=== PATIENT | female | born 1985 | race American Indian/Alaskan Native ===

== ENCOUNTER 2018-09-03 15:43 | Emergency (ER) | payer MEDICAID ==
[2018-09-03] MEDS ORDERED: GLUCAGEN IM ONE (16:28)
[2018-09-03] MEDS ORDERED: D50W (25GM) Syringe IV ONE ×2 (16:28)
--- NOTE | 2018-09-03 17:03 | Emergency Department Report ---
ED General Adult HPI - General Chief complaint: Hypoglycemia Stated complaint: LOW BLOOD SUGAR Time Seen by Provider: 09/03/18 16:27 Source: EMS Mode of arrival: Stretcher Limitations: No Limitations - History of Present Illness Initial comments: Patient presents to the emergency department with a chief complaint of low blood glucose levels. The patient is 13 weeks and this is her eighth . The patient is taking insulin for her diabetes and took 22 units of regular insulin and for 4 units of long-acting insulin this morning and only a small breakfast. The patient states that she intended to eat lunch but she did not get a chance to. Upon EMS arrival her blood glucose level was 29. The patient received an amp of D50 and food by EMS. She denies any chest pain, shortness of breath, abdominal pain, vaginal discharge, or vaginal bleeding. -: Sudden Severity scale (0 -10): 0 Consistency: now resolved Improves with: none Worsens with: none Associated Symptoms: denies other symptoms Treatments Prior to Arrival: none - Related Data Previous Rx's Medication Instructions Recorded Last Taken Type HYDROcodone/APAP 5-325 [Basom 1 each PO Q6HR PRN #12 tablet 11/05/13 Unknown Rx 5/325 mg] Metoclopramide HCl [Reglan] 10 mg PO Q6H PRN #12 tablet 11/05/13 Unknown Rx Guaifenesin/Codeine Phosphate 5 ml PO BID #10 dose 08/09/14 Unknown Rx [Guaifen-Codeine 100-10 mg/5 ml] Penicillin Vk [Veetids TAB] 500 mg PO BID #20 tablet 08/09/14 Unknown Rx Prednisone [Prednisone 5 mg (6-Day 5 mg PO .TAPER #1 tab.ds.pk 08/09/14 Unknown Rx Pack, 21 Tabs)] Cetirizine HCl [ZyrTEC] 10 mg PO DAILY #30 capsule 07/20/16 Unknown Rx Fluticasone [Flonase] 1 spray NS QDAY #1 bottle 07/20/16 Unknown Rx Ibuprofen [Motrin 800 MG tab] 800 mg PO Q8HR PRN #30 tablet 07/20/16 Unknown Rx Allergies Allergy/AdvReac Type Severity Reaction Status Date / Time No Known Allergies Allergy Verified 09/03/18 16:28 ED Review of Systems ROS: Stated complaint: LOW BLOOD SUGAR Other details as noted in HPI Comment: All other systems reviewed and negative Constitutional: denies: chills, fever Eyes: denies: eye pain, eye discharge, vision change ENT: denies: ear pain, throat pain Respiratory: denies: cough, shortness of breath, wheezing Cardiovascular: denies: chest pain, palpitations Endocrine: no symptoms reported Gastrointestinal: denies: abdominal pain, nausea, diarrhea Genitourinary: denies: urgency, dysuria, discharge Musculoskeletal: denies: back pain, joint swelling, arthralgia Skin: denies: rash, lesions Neurological: denies: headache, weakness, paresthesias Psychiatric: denies: anxiety, depression Hematological/Lymphatic: denies: easy bleeding, easy bruising ED Past Medical Hx - Past Medical History Previous Medical History?: Yes Hx Diabetes: Yes Additional medical history: HPV - Surgical History Past Surgical History?: Yes Additional Surgical History: D&C. UMBILICAL HERNIA - Social History Smoking Status: Unknown if ever smoked - Medications Home Medications: Home Medications Medication Instructions Recorded Confirmed Last Taken Type HYDROcodone/APAP 5-325 [Basom 1 each PO Q6HR PRN #12 tablet 11/05/13 Unknown Rx 5/325 mg] Metoclopramide HCl [Reglan] 10 mg PO Q6H PRN #12 tablet 11/05/13 Unknown Rx Guaifenesin/Codeine Phosphate 5 ml PO BID #10 dose 08/09/14 Unknown Rx [Guaifen-Codeine 100-10 mg/5 ml] Penicillin Vk [Veetids TAB] 500 mg PO BID #20 tablet 08/09/14 Unknown Rx Prednisone [Prednisone 5 mg (6-Day 5 mg PO .TAPER #1 tab.ds.pk 08/09/14 Unknown Rx Pack, 21 Tabs)] Cetirizine HCl [ZyrTEC] 10 mg PO DAILY #30 capsule 07/20/16 Unknown Rx Fluticasone [Flonase] 1 spray NS QDAY #1 bottle 07/20/16 Unknown Rx Ibuprofen [Motrin 800 MG tab] 800 mg PO Q8HR PRN #30 tablet 07/20/16 Unknown Rx ED Physical Exam - General Limitations: No Limitations General appearance: alert, in no apparent distress - Head Head exam: Present: atraumatic, normocephalic - Eye Eye exam: Present: normal appearance, PERRL, EOMI - ENT ENT exam: Present: mucous membranes moist - Neck Neck exam: Present: normal inspection - Respiratory Respiratory exam: Present: normal lung sounds bilaterally. Absent: respiratory distress, wheezes, rales, rhonchi - Cardiovascular Cardiovascular Exam: Present: regular rate, normal rhythm. Absent: systolic murmur, diastolic murmur, rubs, gallop - GI/Abdominal GI/Abdominal exam: Present: soft, normal bowel sounds. Absent: distended, tenderness - Extremities Exam Extremities exam: Present: normal inspection - Back Exam Back exam: Present: normal inspection - Neurological Exam Neurological exam: Present: alert, oriented X3, CN II-XII intact. Absent: motor sensory deficit - Psychiatric Psychiatric exam: Present: normal affect, normal mood - Skin Skin exam: Present: warm, dry, intact, normal color. Absent: rash ED Course Vital Signs 09/03/18 09/03/18 15:50 17:28 Temperature 95 F L Pulse Rate 95 H 116 H Respiratory 16 17 Rate Blood Pressure 114/71 Blood Pressure 114/74 [Right] O2 Sat by Pulse 97 Oximetry ED Medical Decision Making - Medical Decision Making FHT 182 Patient glucose improved with D50 and glucagon Critical Care Time: Yes Critical care time in (mins) excluding proc time.: 35 Critical care attestation.: If time is entered above; I have spent that time in minutes in the direct care of this critically ill patient, excluding procedure time. ED Disposition Clinical Impression: Hypoglycemia associated with diabetes Disposition: DC-01 TO HOME OR SELFCARE Is pt being admited?: No Does the pt Need Aspirin: No Condition: Stable Instructions: Diabetic Hypoglycemia (ED) Additional Instructions: return if worse Referrals: ESTHER GUTIERREZ MD [Primary Care Provider] - 3-5 Days Time of Disposition: 17:44
[2018-09-03 17:29] VITALS: BP 114/74
== END 2018-09-03 18:52 | disposition home or self-care (01) ==
LOC: ED 15:43
DX: O26.891 Other specified pregnancy related conditions, first trimester (principal); O24.911 Unspecified diabetes mellitus in pregnancy, first trimester; E11.649 Type 2 diabetes mellitus with hypoglycemia without coma; Z79.899 Other long term (current) drug therapy; Z3A.13 13 weeks gestation of pregnancy
CPT/HCPCS: 82962; 96372; 96374; 99284; J1610